=== PATIENT | male | born 2000 | race Caucasian/White ===

== ENCOUNTER 2024-07-12 17:08 | Emergency (ER) | payer OTHER ==
[~2024-07-12] VITALS: Ht 175.3 cm; Wt 73.0 kg
[2024-07-12 17:15] VITALS: TEMP 37.1; O2SAT 99
[2024-07-12] MEDS: SODIUM CHLORIDE 0.9% 1,000 ML IV ONE (20:05)
[2024-07-12] MEDS: ONDANSETRON HCL 4MG/2ML INJ IV STA (20:19)
[2024-07-12 20:20] VITALS: RESP 18
[2024-07-12] MEDS: MORPHINE SULFATE 4 MG/ML INJ (FOR IV/IM USE) IV STA (20:20)
[2024-07-12] MEDS ORDERED: IBUP-2028 MT (21:52)
[2024-07-12 22:29] VITALS: BP 128/86; PULSE 91; O2SAT 100
== END 2024-07-12 22:37 | disposition home or self-care (01) ==
LOC: ER 17:08
DX: M25.561 Pain in right knee (principal)
CPT/HCPCS: 99284; 96374; 29505; 96361; 96375; 73562; J2405; J2270; J7030